=== PATIENT | male | born 1990 | race Caucasian/White ===

== ENCOUNTER → 2017-09-22 13:51 | Outpatient (CLI) | payer OTHER, SELFPAY ==
--- NOTE | 2017-09-22 13:56 | XR_ITS ---
XR finger LT min 2V CLINICAL INDICATION: Follow-up surgery/fracture ITS.REASON: postoperative visit ORDERING PHYSICIAN: Mp Dorsey MD PATIENT AGE: 26 years COMPARISON: 06/27/2017 FINDINGS: There is a dorsal bone plate as before with multiple screws along with an additional oblique screw through the proximal aspect of the proximal phalanx. Fracture line is less apparent with good alignment. IMPRESSION: Healing fracture proximal phalanx third digit status post ORIF
== END ==
PROVIDERS: PCP Family Medicine; Visit Provider Orthopaedic Surgery
DX: Z48.89 Encounter for other specified surgical aftercare (principal)
CPT/HCPCS: 73140